=== PATIENT | male | born 1990 | race African-American/Black ===

== ENCOUNTER 2018-12-03 10:05 | Emergency (ER) | payer SELFPAY ==
[~2018-12-03] VITALS: Ht 182.9 cm; Wt 80.0 kg
[2018-12-03 12:17] VITALS: BP 135/78
[2018-12-03] MEDS ORDERED: KETOROLAC TROMETHAMINE 30 MG/ML VIAL IM ONE (12:30)
== END 2018-12-03 13:52 | disposition home or self-care (01) ==
LOC: EMS 10:09
DX: S82.61XA Displaced fracture of lateral malleolus of right fibula, initial encounter for closed fracture (principal); F12.90 Cannabis use, unspecified, uncomplicated; F17.210 Nicotine dependence, cigarettes, uncomplicated; X50.1XXA Overexertion from prolonged static or awkward postures, initial encounter; Y93.67 Activity, basketball; Y92.89 Other specified places as the place of occurrence of the external cause; Y99.8 Other external cause status
CPT/HCPCS: 29515; 73610; 96372; 99283; 99406; J1885